=== PATIENT | female | born 1980 | race Caucasian/White ===

== ENCOUNTER 2018-03-17 12:32 | Emergency (ER) | payer OTHER ==
[~2018-03-17] VITALS: Ht 167.6 cm; Wt 56.7 kg
== END 2018-03-17 13:03 | disposition home or self-care (01) ==
LOC: FSED 12:32
DX: K02.9 Dental caries, unspecified (principal); H92.02 Otalgia, left ear
CPT/HCPCS: 99283

== ENCOUNTER 2020-12-30 08:11 | Emergency (ER) | payer OTHER ==
[~2020-12-30] VITALS: Ht 167.6 cm; Wt 56.7 kg
[2020-12-30 08:49] LABS: CLARITY,URINE HAZY (CLEAR); COLOR,URINE YELLOW (YELLOW); LEUKOCYTE ESTERASE ,URINE MODERATE (NEGATIVE)
[2020-12-30 08:50] LABS: KETONES,URINE NEGATIVE (NEGATIVE); NITRITE,URINE POSITIVE (NEGATIVE); PROTEIN,URINE DIPSTICK 1+ (NEGATIVE); URINE UROBILINOGEN 0.2 mg/dL (0.2 - 1)
[2020-12-30 09:16] LABS: BACTERIA,URINE MODERATE /HPF; EPITHELIAL CELLS,URINE FEW /LPF; MUCUS,URINE FEW (RARE); WBC,URINE (MAN) >50 /HPF (0-5)
[2020-12-30] MEDS ORDERED: CEPHALEXIN500 MG PO (09:43)
[2020-12-30 09:55] VITALS: BP 119/62
== END 2020-12-30 10:07 | disposition home or self-care (01) ==
LOC: ER 08:30
DX: R30.0 Dysuria (principal); N39.0 Urinary tract infection, site not specified; M54.5 Low back pain; R10.30 Lower abdominal pain, unspecified; R11.0 Nausea
CPT/HCPCS: 81001; 81025; 99283

== ENCOUNTER 2021-03-07 08:47 | Emergency (ER) | payer OTHER ==
[~2021-03-07] VITALS: Ht 167.6 cm; Wt 56.7 kg
[~2021-03-07 08:47] MED LIST: CEPHALEXIN500 MG PO
== END 2021-03-07 09:45 | disposition home or self-care (01) ==
LOC: ER 09:20
DX: M79.644 Pain in right finger(s) (principal); L84 Corns and callosities; Z98.890 Other specified postprocedural states
CPT/HCPCS: 99282